=== PATIENT | female | born 1950 | race Caucasian/White ===

== ENCOUNTER 2017-02-19 16:13 | Inpatient (IN) | payer MEDICARE ==
[2017-02-19] VITALS (10 sets, daily range): BP systolic 113–139; BP diastolic 65–79
[~2017-02-19] VITALS: Ht 152.4 cm; Wt 81.2 kg
[~2017-02-19 16:13] MED LIST: BENTYL20 MG OR; FIORICET PO; HYZAAR1 TA2 PO; LOSARTAN POTASS50 MG PO; MAXZIDE-25MG1 COMBO PO; PREVPAC PO; ZOFRAN ODT4 MG PO
[2017-02-19 17:37] LABS: HEMATOCRIT 38.6 % (37.0-47.0); IMMATURE GRANULOCYTES 0.5 % (0.0-1.0); MEAN CORPUSCULAR HGB 30.3 pG CALC (26.0-32.0); MEAN CORPUSCULAR HGB CONC 33.7 g/L CALC (32.0-36.0); NEUT# 3.56 thou/uL (2.00-7.15); RED BLOOD COUNT 4.29 mill/uL (4.20-5.60); RED CELL DISTRI WIDTH 12.9 % (11.5-15.5)
[2017-02-19 17:47] LABS: ALBUMIN 4.4 g/dL (3.2-5.0); ALKALINE PHOSPHATASE 93 u/l (38-126); ANION GAP 16 (6-22 (CALC)); BILIRUBIN, TOTAL 0.7 mg/dL (0.0-1.4); BUN 6 mg/dL (8-23); BUN/CREATININE RATIO 8 (12-20 (CALC)); CALCIUM 9.3 mg/dL (8.4-10.2); CARBON DIOXIDE 21 mmol/l (22-30); CHLORIDE 100 mmol/l (95-108); CREATININE 0.8 mg/dL (0.5-1.0); GFR > 60 ML/MIN (>=60 (CALC)); GFR FOR AFR.AMER. > 60 ML/MIN (>=60 (CALC)); GLUCOSE 101 mg/dL (82-115); LIPASE 77 u/l (23-300); POTASSIUM 3.9 mmol/l (3.5-5.1); SGOT/AST 59 u/l (9-36); SGPT/ALT 45 u/l (11-66); SODIUM 133 mmol/l (137-146); TOTAL PROTEIN 7.8 g/dL (6.3-8.2)
[2017-02-19] MEDS ORDERED: LOSARTAN POTASS50 MG PO (17:50)
[2017-02-20] VITALS (30 sets, daily range): BP systolic 110–165; BP diastolic 58–78
[2017-02-20 03:54] LABS: URINE BILIRUBIN - DIPSTICK NEGATIVE (NEGATIVE); URINE BLOOD DIPSTICK NEGATIVE (NEGATIVE); URINE CLARITY SLIGHT CLOUDY; URINE COLOR YELLOW; URINE GLUCOSE - DIPSTICK NEGATIVE (NEGATIVE); URINE KETONE NEGATIVE (NEGATIVE); URINE LEUK ESTERASE NEGATIVE (NEGATIVE); URINE NITRITE - DIPSTICK NEGATIVE (Negative); URINE PROTEIN - DIPSTICK NEGATIVE (NEG-TRACE); URINE UROBILINOGEN - DIPSTICK 0.2 E.U./dL (0.2)
[2017-02-20 22:08] LABS: ANION GAP 12 (6-22 (CALC)); BUN 6 mg/dL (8-23); BUN/CREATININE RATIO 6 (12-20 (CALC)); CALCIUM 8.8 mg/dL (8.4-10.2); CARBON DIOXIDE 23 mmol/l (22-30); CHLORIDE 101 mmol/l (95-108); GFR 55 ML/MIN (>=60 (CALC)); GFR FOR AFR.AMER. > 60 ML/MIN (>=60 (CALC)); GLUCOSE 97 mg/dL (82-115); POTASSIUM 4.2 mmol/l (3.5-5.1); SODIUM 132 mmol/l (137-146)
[2017-02-21] VITALS (7 sets, daily range): BP systolic 138–186; BP diastolic 72–95
[2017-02-21 06:38] LABS: HEMATOCRIT 32.1 % (37.0-47.0); HEMOGLOBIN 10.7 g/dl (12.0-16.0); IMMATURE GRANULOCYTES 0.3 % (0.0-1.0); MEAN CORPUSCULAR HGB CONC 33.3 g/L CALC (32.0-36.0); NEUT# 2.38 thou/uL (2.00-7.15); RED BLOOD COUNT 3.45 mill/uL (4.20-5.60); RED CELL DISTRI WIDTH 13.1 % (11.5-15.5)
[2017-02-21] MEDS ORDERED: PROTONIX40 MG PO (07:56)
== END 2017-02-21 09:45 | disposition home or self-care (01) | DRG 392 ==
LOC: ED 16:13 → ED-I 17:57 → ED 18:11 → ICU 18:12
PROVIDERS: Family Medicine; ADMIT Internal Medicine; ATTEND Internal Medicine
DX: K21.9 Gastro-esophageal reflux disease without esophagitis (principal); I10 Essential (primary) hypertension; F17.210 Nicotine dependence, cigarettes, uncomplicated; K44.9 Diaphragmatic hernia without obstruction or gangrene
CPT/HCPCS: J1650; S0164

== ENCOUNTER 2017-05-16 06:05 | Day surgery (SDC) | payer MEDICARE ==
[~2017-05-16] VITALS: Ht 152.4 cm; Wt 73.0 kg
[~2017-05-16 06:05] MED LIST changes: +AMLODIPINE5 MG PO; +ASPIRIN81 MG PO; +ATORVASTATIN CA80 MG PO; +PROTONIX40 MG PO
[2017-05-16 07:51] VITALS: BP 122/78
== END 2017-05-16 08:09 | disposition home or self-care (01) ==
LOC: ENDO 06:05
PROVIDERS: ATTEND Surgery
PROC: 0DJD8ZZ Inspection of Lower Intestinal Tract, Via Natural or Artificial Opening Endoscopic (ICD-10-PCS; principal; 2017-05-16)
DX: Z12.11 Encounter for screening for malignant neoplasm of colon (principal); K57.30 Diverticulosis of large intestine without perforation or abscess without bleeding; K21.9 Gastro-esophageal reflux disease without esophagitis; K27.9 Peptic ulcer, site unspecified, unspecified as acute or chronic, without hemorrhage or perforation; K44.9 Diaphragmatic hernia without obstruction or gangrene

== ENCOUNTER 2020-02-25 00:48 | Inpatient (IN) | payer MEDICARE ==
[~2020-02-25] VITALS: Ht 152.4 cm; Wt 87.1 kg
--- NOTE | 2020-02-25 01:00 | NUR ---
BY WC TO ROOM
--- NOTE | 2020-02-25 01:17 | NUR ---
A/O F WITH L CHEST PAIN ONSET 4pm yesterday resolved with tylenol but returned tonight
[2020-02-25 01:38] LABS: HEMATOCRIT 29.7 % (37.0-47.0); HEMOGLOBIN 10.3 g/dl (12.0-16.0); IMMATURE GRANULOCYTES 0.5 % (0.0-5.0); MEAN CORPUSCULAR HGB 29.4 pG CALC (26.0-32.0); MEAN CORPUSCULAR HGB CONC 34.7 g/dL CAL (32.0-36.0); NEUT# 4.52 thou/uL (2.00-7.15); RED BLOOD COUNT 3.5 mill/uL (4.20-5.60)
[2020-02-25 01:42] LABS: MEAN CELL VOLUME 84.9 fL CALC (80.0-100.0)
[2020-02-25 02:00] LABS: ALBUMIN 4.1 g/dL (3.2-5.0); ALKALINE PHOSPHATASE 72 u/l (38-126); AMYLASE 86 u/l (30-110); BUN 17 mg/dL (8-23); BUN/CREATININE RATIO 11 (12-20 (CALC)); CARBON DIOXIDE 19 mmol/l (22-30); CREATININE 1.5 mg/dL (0.5-1.0); GFR 34 ML/MIN (>=60 (CALC)); GFR FOR AFR.AMER. 42 ML/MIN (>=60 (CALC)); LIPASE 121 u/l (23-300); POTASSIUM 3.5 mmol/l (3.5-5.1); SGOT/AST 30 u/l (9-36); TOTAL PROTEIN 7.1 g/dL (6.3-8.2)
[2020-02-25 02:06] LABS: URINE BILIRUBIN - DIPSTICK NEGATIVE (NEGATIVE); URINE BLOOD DIPSTICK NEGATIVE (NEGATIVE); URINE COLOR YELLOW; URINE GLUCOSE - DIPSTICK NEGATIVE (NEGATIVE); URINE KETONE NEGATIVE (NEGATIVE); URINE LEUK ESTERASE NEGATIVE (NEGATIVE); URINE NITRITE - DIPSTICK NEGATIVE (Negative); URINE PROTEIN - DIPSTICK NEGATIVE (NEG-TRACE); URINE UROBILINOGEN - DIPSTICK 0.2 E.U./dL (0.2)
[2020-02-25 02:12] LABS: MYOGLOBIN 90 ng/mL (0 - 62)
[2020-02-25 02:13] LABS: ANION GAP 17 (6-22 (CALC)); BILIRUBIN, TOTAL 0.4 mg/dL (0.0-1.4); CHLORIDE 86 mmol/l (95-108)
--- NOTE | 2020-02-25 02:13 | NUR ---
W/P/D SKIN CP IS RESOLVING TO 1 ON SCALE SR NO ECTOPY NO ST T CHANGES.
[2020-02-25 02:14] LABS: SODIUM 118 mmol/l (137-146)
--- NOTE | 2020-02-25 02:56 | NUR ---
CP HAS RESOLVED PT MEDICATED FOR UPPER BACK ACHE W/P/D SKIN SR NO ECTOPY NO ST T CHANGES.
--- NOTE | 2020-02-25 03:00 | NUR ---
PHONE REPORT TO NURSE CASERY ON [facility]
--- NOTE | 2020-02-25 03:05 | NUR ---
PT TRANSPORTED VIA STRETCHER AND TELE MONOTOR TO [facility] RM 278 IN STABLE CONDITION
[2020-02-25 03:20] VITALS: BP 95/54
--- NOTE | 2020-02-25 03:20 | NUR ---
PT ARRIVED TO FLOOR VIA STRETCHER ACCOMPANIED BY ER STAFF. PT ALERT AND ORIENTED X3. PT AMBULATORY FROM STRETCHER TO BED. MALTESE SPEAKING. DENIES ANY PAIN AT THIS TIME. NO APPARENT RESPIRATORY DISTRESS NOTED. PT DENIES AN SOB. RAILROAD CAR CLEANER IN PLACE. IV SITE APPEARS HEALTHY. PT ORIENTED TO ROOM AND CALL LIGHT SYSTEM. DISCUSSED POC. PT VERBALIZED UNDERSTANDING. PT REFUSED TO REMOVED PANTS AT THIS TIME. SKIN INTACT. CALL LIGHT WITHIN REACH. SAFETY MEASURES IN PLACE. WLL CONTINUE TO MONITOR.
[2020-02-25 06:34] LABS: HEMOGLOBIN 9.3 g/dl (12.0-16.0); IMMATURE GRANULOCYTES 0.5 % (0.0-5.0); MEAN CELL VOLUME 85.4 fL CALC (80.0-100.0); MEAN CORPUSCULAR HGB 29.4 pG CALC (26.0-32.0); MEAN CORPUSCULAR HGB CONC 34.4 g/dL CAL (32.0-36.0); NEUT# 3.53 thou/uL (2.00-7.15); RED BLOOD COUNT 3.16 mill/uL (4.20-5.60); RED CELL DISTRI WIDTH 11.9 % (11.5-15.5)
[2020-02-25 06:45] LABS: CREATININE 1.4 mg/dL (0.5-1.0); POTASSIUM 3.6 mmol/l (3.5-5.1)
[2020-02-25 08:45] VITALS: BP 101/50
--- NOTE | 2020-02-25 08:45 | NUR ---
PT SITTING IN BED. A&O X3. NO DISTRESS NOTED. DR ARVIZU AND ANG AT BEDSIDE DISCUSSING POC. PT C/O OF SLIGHT DANIEL CP AND NAUSEA X2 VOMITING EPISODES WITH CLEAR OUTPUT. NO OTHER NEEDS AT THIS TIME. ASSESSMENT COMPLETED. DISCUSSED POC. CALL LIGHT IN REACH. CONTINUE TO MONITOR.
[2020-02-25 10:44] VITALS: BP 98/59
--- NOTE | 2020-02-25 11:44 | NUR ---
PT SITTING IN BED EATING LUNCH. PT REPORTS TO BE FEELING A LOT BETTER. CALL LIGHT IN REACH. CONTINUE TO MONITOR.
[2020-02-25 16:15] VITALS: BP 116/63
--- NOTE | 2020-02-25 17:31 | NUR ---
PT SITTING IN BED EATING DINNER. NO DISTRESS NOTED. CALL LIGHT IN REACH. CONTINUE TO MONITOR.
[2020-02-25 19:00] VITALS: BP 104/58
--- NOTE | 2020-02-25 19:00 | NUR ---
RECEIVED REPORT FROM NURSE OCHOA, PATIENT SITTING IN BED, WATCHING TV, C/O BACK ON UPPER AND LOWER BACK PS 5/10, PRN TYLENOL GIVEN DURING DAY SHIFT, WILL MEDICATE, CALL LIGHT AT REACH.
--- NOTE | 2020-02-25 20:45 | NUR ---
NOTIFIED DR. ARVIZU ABOUT C/O BACK PAIN WITH ORDERS MADE AND SENT TO [facility].
--- NOTE | 2020-02-25 21:00 | NUR ---
PATIENT ALERT ORINETED, MALAWIAN SPEAKING WITH ONGOING IV NS @ 50CC/HR INFUSINING WELL ON LAC, REMAINS ON TELE SR 61 WITH 1ST AVBGRZEGORZ ASSIST WITH BUTLER TRANSFER, C/O ACHING PAIN, BOWEL SOUNDS ACTIVE ALL QUADRANTS, TRACE OF EDEMA ON BILAT ANKL, CALL LIGHT AT REACH.
--- NOTE | 2020-02-25 23:54 | NUR ---
PATIENT RESTING IN BED EASY TO AROUSE, DENIES PAIN OR DISCOMFORTS AT THIS TIME, BREATHING EVEN UNLABORED CALL LIGHT AT REACH.
[2020-02-26] VITALS: BP 117/72
[2020-02-26 04:00] VITALS: BP 118/72
--- NOTE | 2020-02-26 04:46 | NUR ---
PATIENT APPEARS TO BE SLEEPING WITH EYES CLOSED, BREATHING EVEN UNLABORED, CALL LIGHT AT REACH.
[2020-02-26 05:07] LABS: HEMATOCRIT 28.4 % (37.0-47.0); HEMOGLOBIN 9.6 g/dl (12.0-16.0); MEAN CELL VOLUME 86.1 fL CALC (80.0-100.0); MEAN CORPUSCULAR HGB 29.1 pG CALC (26.0-32.0); MEAN CORPUSCULAR HGB CONC 33.8 g/dL CAL (32.0-36.0); RED BLOOD COUNT 3.3 mill/uL (4.20-5.60); RED CELL DISTRI WIDTH 12.2 % (11.5-15.5)
[2020-02-26 05:41] LABS: CREATININE 1.4 mg/dL (0.5-1.0); MAGNESIUM 1.7 mg/dL (1.6-2.3); POTASSIUM 3.9 mmol/l (3.5-5.1)
--- NOTE | 2020-02-26 08:38 | NUR ---
PT. RESTING IN BED. ALERT AND ORIENTED X 3. IV SITE 20G LEFT AC PATENT AND INTACT/FLUSHES WELL. MINOR BRUISING ON ABD FROM SQ HEPARIN. APPEITE FAIR THIS AM.
--- NOTE | 2020-02-26 08:48 | NUR ---
AT BEDSIDE DISCUSSING POC.
[2020-02-26 09:01] VITALS: BP 100/48
[2020-02-26 11:00] VITALS: BP 102/47
--- NOTE | 2020-02-26 12:40 | NUR ---
PT. ALERT AND ORIENTED X 3 WITH DAUGHTER AT BEDSIDE. IV 20 G LAC PATENT AND INTACT. POSITIONED FOR COMFORT.
[2020-02-26 14:55] VITALS: BP 103/53
--- NOTE | 2020-02-26 16:35 | NUR ---
PT. A&O X 3. APPETITE BETTER AT LUNCH THAN AT BREAKFAST. ATE APPROX 50%. ALERT AND ORIENTED X 3. FAMILY MEMBER AT BEDSIDE. SITTING UP IN BED AND DENIES LEFT SHOULDER PAIN. WILL MONITOR.
--- NOTE | 2020-02-26 17:10 | NUR ---
CONSULT COMPLETED AT THIS TIME WITH TRANSLATION BY ELPIDIO OCHOA.
[2020-02-26 19:00] VITALS: BP 122/55
--- NOTE | 2020-02-26 19:00 | NUR ---
RECEIVED REPORT FROM NURSE YENI JORGE CURRENTLY RESTING IN BED, WATCHING TV, BREATHING SHALOOW UNLABORED, CALL LIGHT AT REACH.
--- NOTE | 2020-02-26 20:30 | NUR ---
PATIENT ALERT ORIENTED DANISH SPEAKING WITH SALINE LOCK ON LAC PATENT FLUSHES WELL, REMAINS ON TELE SR 65 WITH 1ST AVB, DENIES CHEST DISCOMFORTS, BOWEL SOUND ACTIVE ALL QUADRANTS C/O PAIN ON LEFT SHOULDER AND BACK PAIN WILL MEDICATE, BREATHING SHALLOW UNLABORED CALL LIGHT AT REACH.
[2020-02-27] VITALS: BP 121/64
--- NOTE | 2020-02-27 00:13 | NUR ---
PATIENT APPEARS TO BE SLEEPING WITH EYES CLOSED, BREATHING EVEN UNLABORED, CALL LIGHT AT REACH.
[2020-02-27 04:00] VITALS: BP 126/62
--- NOTE | 2020-02-27 04:30 | NUR ---
PATIENT AWAKEN C/O OF PAIN ON LEFT SHOULDER AND LOWER BACK, BREATHING UNLABORED, PATIENT ASSISTED TO THE BATHROOM, WILL MEDICATE AFTER, CALL LIGHT AT REACH.
[2020-02-27 05:23] LABS: HEMATOCRIT 27.8 % (37.0-47.0); HEMOGLOBIN 9.3 g/dl (12.0-16.0); IMMATURE GRANULOCYTES 0.4 % (0.0-5.0); MEAN CELL VOLUME 86.9 fL CALC (80.0-100.0); MEAN CORPUSCULAR HGB 29.1 pG CALC (26.0-32.0); MEAN CORPUSCULAR HGB CONC 33.5 g/dL CAL (32.0-36.0); NEUT# 3.6 thou/uL (2.00-7.15); RED BLOOD COUNT 3.2 mill/uL (4.20-5.60); RED CELL DISTRI WIDTH 12.1 % (11.5-15.5)
[2020-02-27 05:44] LABS: ALBUMIN 3.4 g/dL (3.2-5.0); BILIRUBIN, TOTAL 0.4 mg/dL (0.0-1.4); CREATININE 1.3 mg/dL (0.5-1.0); MAGNESIUM 1.7 mg/dL (1.6-2.3); POTASSIUM 4.3 mmol/l (3.5-5.1); TOTAL PROTEIN 5.8 g/dL (6.3-8.2)
[2020-02-27 07:44] VITALS: BP 123/52
--- NOTE | 2020-02-27 07:44 | NUR ---
RECIEVED REPORT FROM ELPIDIO CLAIRE. PT RESTING IN SEMI FOWLERS POSITION UPON ENTERING ROOM. INTRODUCED SELF TO PT AND DISCUSSED POC. PT IS A/OX3. ASSESSMENT AND VITALS COMPLETED AT THIS TIME. BP 123/52, HR 65, O2 99% ON ROOM AIR.RESPIRATIONS ARE EVEN AND UNLABORED WITH NO SIGNS OF DISTRESS NOTED. LUNG SOUNDS COARSE. PT DENIES SOB. BOWEL SOUNDS ARE ACTIVE IN ALL QUADRANTS, LAST REPORTED BM 02/26/20. RADIAL AND PEDAL PULSES ARE STRONG WITH NORMAL CAPILLARY REFILL. #20G IN LAC FLUSHED,SITE APPEARS HEALTHY AND PATENT. PT COMPLAINS OF 8/10 LEFT SHOLDER PAIN, TYLENOL TO BE ADMINISTERED.SKIN IS WARM AND DRY WITH NO BREAKDOWN. TELE MONITORING IN PLACE.PT DENIES ANY OTHER NEEDS. ALL SAFTEY PRECAUTIONS ARE IN PLACE WITH CALL LIGHT IN REACH. WILL CONTINUE TO MONITOR.
--- NOTE | 2020-02-27 09:04 | NUR ---
DR ARVIZU AND ANG,ANRP AT BEDSIDE DISCUSSING POC
--- NOTE | 2020-02-27 09:52 | NUR ---
REASSESSMENT OF PAIN AT THIS TIME RESULTING IN 08/13. RESPIRATIONS ARE EVEN AND UNLABORED WITH NO SIGNS OF DISTRESS NOTED. PT DENIES ANY ADDITIONAL NEEDS AT THIS TIME. WILL CONTINUE TO MONITOR
[2020-02-27 10:40] VITALS: BP 119/54
[2020-02-27] MEDS ORDERED: FLEXERIL5 M1 PO (11:47)
[2020-02-27] MEDS ORDERED: PROTONIX40 M2 PO (11:47)
[2020-02-27] MEDS ORDERED: SOD CHLORIDE1 GM PO (11:52)
--- NOTE | 2020-02-27 12:15 | NUR ---
PT RESTING IN SEMI FOWLERS POSITION WATCHING TV. RESPIRATIONS ARE EVEN AND UNLABORED WITH NO SIGNS OF DISTRESS NOTED. PT DENIES OF ANY PAIN OR DISCOMFORTS AT THIS TIME. ALL SAFETY PRECAUTIONS ARE IN PLACE WITH AT BEDSIDE. WILL CONTINUE TO MONITOR
--- NOTE | 2020-02-27 13:13 | NUR ---
PT EDUCATED ON DISCHARGE INSTRUCTIONS AND NEW MEDICATIONS PROTONIX, FLEXERIL AND SODIUM CHLORIDE TABLETS. PT VERBALIZED UNDERSTANDING. IV REMOVED WITH CATHATER STILL INTACTED. PT TOLERATED WELL. ALL SAFETY PRECAUTIONS REMAIN IN PLACE WITH CALL LIGHT IN REACH. WILL CONTINUE TO MONITOR.
--- NOTE | 2020-02-27 13:23 | NUR ---
Discharge instructions given. Patient verbalizes understanding of same. Discharged in stable condition via Wheelchair to Home with family. All belongings sent with pt. PT DISCHARGED WITH ALL BELONGINGS AND DISCHARGE PAPERWORK. PT LEFT VIA WHEELCHAIR IN STABLE CONDITION ACCOMPAINED BY YESICA BARRIENTOS.
== END 2020-02-27 13:23 | disposition home or self-care (01) | DRG 392 ==
LOC: ED 00:48 → ED-I 02:13 → ED 02:27 → MS2 02:28 → EDBD 02-27 13:23 → MS2 02-27 13:23
PROVIDERS: Emergency Medicine; Nurse Practitioner; ADMIT Internal Medicine; ATTEND Internal Medicine
DX: K21.9 Gastro-esophageal reflux disease without esophagitis (principal); E87.1 Hypo-osmolality and hyponatremia; R07.89 Other chest pain; K44.9 Diaphragmatic hernia without obstruction or gangrene; K27.9 Peptic ulcer, site unspecified, unspecified as acute or chronic, without hemorrhage or perforation; N28.9 Disorder of kidney and ureter, unspecified; M54.6 Pain in thoracic spine; I10 Essential (primary) hypertension; I25.10 Atherosclerotic heart disease of native coronary artery without angina pectoris; E78.5 Hyperlipidemia, unspecified; F17.210 Nicotine dependence, cigarettes, uncomplicated; Z95.5 Presence of coronary angioplasty implant and graft; Z20.828 Contact with and (suspected) exposure to other viral communicable diseases
CPT/HCPCS: S0164

== ENCOUNTER 2020-10-09 11:50 | Emergency (ER) | payer MEDICARE ==
[~2020-10-09 11:50] MED LIST changes: +AMLODIPINE BESY10 MG PO; +FLEXERIL5 M1 PO; +PROTONIX40 M2 PO; +SOD CHLORIDE1 GM PO
[2020-10-09 13:27] LABS: HEMATOCRIT 37.9 % (37.0-47.0); HEMOGLOBIN 12.1 g/dl (12.0-16.0); IMMATURE GRANULOCYTES 0.4 % (0.0-5.0); MEAN CELL VOLUME 90.7 fL CALC (80.0-100.0); MEAN CORPUSCULAR HGB 28.9 pG CALC (26.0-32.0); MEAN CORPUSCULAR HGB CONC 31.9 g/dL CAL (32.0-36.0); NEUT# 3.72 thou/uL (2.00-7.15); RED BLOOD COUNT 4.18 mill/uL (4.20-5.60); RED CELL DISTRI WIDTH 13.1 % (11.5-15.5)
[2020-10-09 13:54] LABS: ALBUMIN 4.1 g/dL (3.2-5.0); ALKALINE PHOSPHATASE 82 u/l (38-126); ANION GAP 10 (6-22 (CALC)); BILIRUBIN, TOTAL 0.5 mg/dL (0.0-1.4); BUN 14 mg/dL (8-23); BUN/CREATININE RATIO 11 (12-20 (CALC)); CARBON DIOXIDE 25 mmol/l (22-30); CHLORIDE 107 mmol/l (95-108); CREATININE 1.3 mg/dL (0.5-1.0); GFR 41 ML/MIN (>=60 (CALC)); GFR FOR AFR.AMER. 49 ML/MIN (>=60 (CALC)); POTASSIUM 4.3 mmol/l (3.5-5.1); SGOT/AST 56 u/l (9-36); SODIUM 137 mmol/l (137-146); TOTAL PROTEIN 7.3 g/dL (6.3-8.2)
[2020-10-09] MEDS ORDERED: MECLIZINE25 MG PO (14:24)
[2020-10-09] MEDS ORDERED: ZOFRAN4 M1 PO (14:24)
[2020-10-09 16:13] VITALS: BP 194/89
== END 2020-10-09 16:20 | disposition home or self-care (01) ==
LOC: ED 11:50
PROVIDERS: Family Medicine
DX: R42 Dizziness and giddiness (principal); I10 Essential (primary) hypertension; F17.210 Nicotine dependence, cigarettes, uncomplicated; Z20.822 Contact with and (suspected) exposure to COVID-19